=== PATIENT | male | born 1975 | race Caucasian/White ===

== ENCOUNTER 2019-01-20 00:33 | Emergency (ER) | payer MEDICAID ==
[~2019-01-20] VITALS: Ht 172.7 cm; Wt 74.8 kg
[2019-01-20 00:45] VITALS: BP 148/77
[2019-01-20] MEDS ORDERED: HYDROCODONE/APAP 5/325MG 1 EACH TABLET ONE (01:24)
[2019-01-20] MEDS ORDERED: HYDROCODONE/APAP 5/325MG 1 EACH TABLET PO ONE (01:30)
== END 2019-01-20 01:30 | disposition home or self-care (01) ==
LOC: ER 00:37
DX: M25.512 Pain in left shoulder (principal)
CPT/HCPCS: 99283; A4606